=== PATIENT | male | born 2000 | race African-American/Black ===

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

== ENCOUNTER 2022-06-06 16:37 | Emergency (ER) | payer SELFPAY ==
[2022-06-06] VITALS (8 sets, daily range): BP systolic 111–129; BP diastolic 57–74
[~2022-06-06] VITALS: Ht 180.3 cm; Wt 167.4 kg
[~2022-06-06 16:37] MED LIST changes: +BACTRIM DS1 TAB PO
[2022-06-06] MEDS ORDERED: PENICILLN VK500 MG PO (18:33)
== END 2022-06-06 18:45 | disposition home or self-care (01) | DRG 153 ==
LOC: ED 16:37
DX: J02.9 Acute pharyngitis, unspecified (principal); L50.9 Urticaria, unspecified; Z20.822 Contact with and (suspected) exposure to COVID-19